=== PATIENT | male | born 1990 | race Two or more races ===

== ENCOUNTER 2019-08-30 13:49 | Emergency (ER) | payer SELFPAY ==
--- NOTE | 2019-08-30 13:56 | PDOC ---
Rapid Medical Evaluation Time Seen by Provider: 08/30/19 13:54 Medical Evaluation: 08/30/19 13:54 CC: Intermittent weakness and dizziness x2 days PMHx- NIDDM PE: No focal findings Orders: labs, urine, EKG Patient to proceed to ER for evaluation. Discharge Disposition - Diagnosis Dizziness - Referrals - Patient Instructions - Post Discharge Activity
[2019-08-30] MEDS ORDERED: SODIUM CHLORIDE 1,000 ML IV STA (13:57)
[2019-08-30 14:02] VITALS: BP 130/84; PULSE 95; TEMP 98.2; BMI 29.0
[2019-08-30 14:33] LABS: BASO % 0.8 % (0-2.0); EOS % 0.6 % (0-4.5); HEMOGLOBIN 16.1 GM/dL (11.7-16.9); LYMPH % 25.4 % (8-40); MCH 28.9 pg (25.7-33.7); MCHC 33.6 g/dl (32.0-35.9); MEAN CELL VOLUME 86.2 fl (80-96); MEAN PLT VOLUME 8.6 fl (7.5-11.1); MONO % 5.1 % (3.8-10.2); NEUT % 68.1 % (42.8-82.8); PLATELET COUNT 307 K/MM3 (134-434); RBC 5.56 M/mm3 (4.00-5.60); RDW 13.4 % (11.9-15.9); WHITE BLOOD COUNT 9.2 K/mm3 (4.0-10.0)
--- NOTE | 2019-08-30 14:41 | PDOC ---
History of Present Illness <Siddhartha Donovan - Last Filed: 08/30/19 14:50> - General History Source: Patient - History of Present Illness Timing/Duration: other <Yuniel Gilliam - Last Filed: 08/30/19 15:52> - General Chief Complaint: Lightheaded Stated Complaint: diabities high level Time Seen by Provider: 08/30/19 13:54 Past History <Siddhartha Donovan - Last Filed: 08/30/19 14:50> - Past Medical History COPD: No Diabetes: Yes - Psycho Social/Smoking Cessation Hx Smoking History: Never smoked Have you smoked in the past 12 months: No Information on smoking cessation initiated: No Hx Alcohol Use: No Drug/Substance Use Hx: No <Yuniel Gilliam - Last Filed: 08/30/19 15:52> - Past Medical History Allergies/Adverse Reactions: Allergies Allergy/AdvReac Type Severity Reaction Status Date / Time No Known Allergies Allergy Verified 08/30/19 13:59 Home Medications: Ambulatory Orders Metformin HCl [Glucophage] 500 mg PO BID #60 tablet 08/30/19 Metformin HCl [Metformin HCl ER] 500 mg PO BID 08/30/19 Review of Systems - Review of Systems Constitutional: No: Chills, Fever Respiratory: No: Shortness of Breath Cardiac (ROS): No: Chest Pain ABD/GI: No: Constipated, Diarrhea, Nausea, Vomiting, Abdominal cramping : No: Dysuria, Flank Pain, Hematuria Endocrine: Yes: Increased Thirst, Increased Urine <Yuniel Gilliam - Last Filed: 08/30/19 15:52> *Physical Exam - Vital Signs Last Vital Signs Temp Pulse Resp BP Pulse Ox 98.2 F 95 H 16 130/84 100 08/30/19 13:59 08/30/19 13:59 08/30/19 13:59 08/30/19 13:59 08/30/19 13:59 <Siddhartha Donovan - Last Filed: 08/30/19 14:50> - Vital Signs Last Vital Signs Temp Pulse Resp BP Pulse Ox 98.2 F 95 H 16 130/84 100 08/30/19 13:59 08/30/19 13:59 08/30/19 13:59 08/30/19 13:59 08/30/19 13:59 - Physical Exam General Appearance: Yes: Appropriately Dressed. No: Apparent Distress HEENT: positive: Normal Voice Neck: positive: Supple Respiratory/Chest: negative: Respiratory Distress Gastrointestinal/Abdominal: positive: Soft. negative: Tender Extremity: positive: Normal Inspection Integumentary: positive: Dry, Warm Neurologic: positive: Fully Oriented, Alert, Normal Mood/Affect <Yuniel Gilliam - Last Filed: 08/30/19 15:52> Heart Score/ECG Review #1 ECG reviewed & interpreted by me at: 13:58 General ECG Interpretation: Sinus Rhythm, Normal Rate (76), Normal Intervals ( qtc 429), No acute ischemic changes <Siddhartha Donovan - Last Filed: 08/30/19 14:50> ED Treatment Course - LABORATORY CBC & Chemistry Diagram: 08/30/19 14:16 08/30/19 14:16 - ADDITIONAL ORDERS Additional order review: Laboratory Results 08/30/19 14:16 VBG pH No Result Required. POC VBG pCO2 No Result Required. POC VBG pO2 No Result Required. VBG HCO3 No Result Required. VBG O2 Sat ([place]) 65.0 L VBG Base Excess No Result Required. 08/30/19 14:16 RBC 5.56 MCV 86.2 MCHC 33.6 RDW 13.4 MPV 8.6 Neutrophils % 68.1 Lymphocytes % 25.4 Monocytes % 5.1 Eosinophils % 0.6 Basophils % 0.8 <Siddhartha Donovan - Last Filed: 08/30/19 14:50> - LABORATORY CBC & Chemistry Diagram: 08/30/19 14:16 08/30/19 14:16 - ADDITIONAL ORDERS Additional order review: 08/30/19 14:16 RBC 5.56 MCV 86.2 MCHC 33.6 RDW 13.4 MPV 8.6 Neutrophils % 68.1 Lymphocytes % 25.4 Monocytes % 5.1 Eosinophils % 0.6 Basophils % 0.8 <Yuniel Gilliam - Last Filed: 08/30/19 15:52> Medical Decision Making - Medical Decision Making 08/30/19 14:41 29 yo male, dx w/ NIDDM 1 year ago, non-compliant with metformin but states he started taking meds as directed just 3 days ago, now p/w dizziness, weakness, polyuria, polydipsia and dry mouth3 days. No abdominal pain, nausea, vomiting or shortness of breath. Seen in urgent care today and states finger stick was in the 300s and referred to the ER. No history of DKA See exam Hyperglycemia Non-compliant w/ metformin No abd pain, n/v or SOB to suggest DKA Exam unremarkable -labs pending from triage -IVF -reassess 08/30/19 14:49 08/30/19 15:49 Labs remarkable for BG of 311, no gap and neg acetone. Rpt FS 231. pt remained well rony and stable here. Will dc to resume home meds as directed. To f/u with his PMD <Yuniel Gilliam - Last Filed: 08/30/19 15:52> Discharge <Siddhartha Donovan - Last Filed: 08/30/19 14:50> - Discharge Information Problems reviewed: Yes <Yuniel Gilliam - Last Filed: 08/30/19 15:52> - Discharge Information Clinical Impression/Diagnosis: Hyperglycemia, Dizziness Condition: Improved Disposition: HOME - Additional Discharge Information Prescriptions: Metformin HCl [Glucophage] 500 mg PO BID #60 tablet - Patient Discharge Instructions Patient Printed Discharge Instructions: DI for Hyperglycemia -- Adult Additional Instructions: Your blood glucose was 311, 231 after IV fluids You need to take your metformin as directed to prevent complications such as build up of excessive acid in your blood, kidney disease, blindness, etc. Diet and exercise can also help improve your diabetes Please continue to follow-up with your PMD
[2019-08-30 15:06] LABS: ALK PHOS 154 U/L (45-117); ANION GAP 10 MMOL/L (8-16); BILIRUBIN,TOTAL 0.6 mg/dL (0.2-1); BLOOD UREA NITROGEN 17.4 mg/dL (7-18); CALCIUM 9.2 mg/dL (8.5-10.1); CHLORIDE 102 mmol/L (98-107); CO2 26 mmol/L (21-32); CREATININE 0.8 mg/dL (0.55-1.3); GLUCOSE,RANDOM 311 mg/dL (74-106); POTASSIUM 4.3 mmol/L (3.5-5.1); SGOT/AST 20 U/L (15-37); SGPT/ALT 42 U/L (13-61); SODIUM 138 mmol/L (136-145); TOT PROT 8.2 g/dl (6.4-8.2)
[2019-08-30 15:09] LABS: URINE APPEARANCE CLEAR; URINE BILIRUBIN NEGATIVE (NEGATIVE); URINE COLOR YELLOW
[2019-08-30 15:10] LABS: PH,URINE 5.5 (5.0-8.0); URINE KETONE TRACE (NEGATIVE); URINE LEUK ESTERASE NEGATIVE (NEGATIVE); URINE NITRITE NEGATIVE (NEGATIVE); URINE PROTEIN NEGATIVE (NEGATIVE); URINE UROBILINOGEN 0.2 mg/dL (0.2-1.0)
[2019-08-30 15:13] LABS: URINE GLUCOSE (UA) 3+ (NEGATIVE)
--- NOTE | 2019-08-31 11:36 | EKG ---
Test Reason : Blood Pressure : / mmHG Vent. Rate : 076 BPM Atrial Rate : 076 BPM P-R Int : 136 ms QRS Dur : 102 ms QT Int : 382 ms P-R-T Axes : 019 003 025 degrees QTc Int : 429 ms NORMAL SINUS RHYTHM NORMAL ECG NO PREVIOUS ECGS AVAILABLE Confirmed by YASEMIN LEON, RADHA ([id number]) on 08/31/2019 11:35:39 AM Referred By: Confirmed By:RADHA HAZEL MD
== END 2019-08-30 15:59 | disposition home or self-care (01) ==
LOC: JER 13:49
PROC: 3E0337Z Introduction of Electrolytic and Water Balance Substance into Peripheral Vein, Percutaneous Approach (ICD-10-PCS; principal; 2019-08-30)
DX: E11.65 Type 2 diabetes mellitus with hyperglycemia (principal); Z79.84 Long term (current) use of oral hypoglycemic drugs
CPT/HCPCS: 36415; 80053; 81003; 82009; 82550; 82803; 82962; 84484; 85025; 87086; 93005; 93010; 99284-25; J7030

== ENCOUNTER 2022-07-09 19:51 | Emergency (ER) | payer OTHER ==
[2022-07-09 20:17] VITALS: BP 107/69; PULSE 78; RESP 18; TEMP 97.8; BMI 32.3
[2022-07-09] MEDS ORDERED: KETOROLAC TROMETHAMINE 30 MG/1 ML VIAL IM ONE (21:37)
[2022-07-09] MEDS ORDERED: KETOROLAC TROMETHAMINE 30 MG/1 ML VIAL ONE (21:39)
== END 2022-07-09 21:48 | disposition home or self-care (01) ==
LOC: JER 19:51 → JERFT 19:51
PROC: 3E0233Z Introduction of Anti-inflammatory into Muscle, Percutaneous Approach (ICD-10-PCS; principal; 2022-07-09)
DX: M54.2 Cervicalgia (principal)
CPT/HCPCS: 99283-25